=== PATIENT | female | born 1950 | race Hispanic/Latino ===

== ENCOUNTER → 2018-12-02 | Day surgery (SDC) | payer MEDICARE ==
[~2018-12-02] MED LIST: ALENDRONATE SOD70 MG; AMLODIPINE BESYL5 MG PO; B12; CALCIUM; FENTANYL CITRATE/PF 100MCG/2 ML INJ ONE; GLIMEPIRIDE2 MG PO; HYDROCHLOROTHIA25 MG; LORATADINE10 MG PO; LOSARTAN POTASS25 MG; LOVASTATIN40 MG; MELOXICAM7.5 MG PO; METOPROLOL TART50 MG PO; MIDAZOLAM HCL 2 MG/2 ML VIAL ONE; MONTELUKAST SOD10 MG PO; OMEPRAZOLE40 MG; OR PHACO EYE KIT ONE; PREOP PHACO EYE KIT ONE
--- OUTSIDE RECORDS SUMMARY | 2018-12-02 10:47 | XMS REPORT ---
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 Allergies, Adverse Reactions, Alerts This patient has no known allergies or adverse reactions. Medications This patient has no known medications. Results Test Description Test Time Test Comments Text Results Atomic Results Result Comments CT CHEST WO 2018-07-08 15:36:00 [place] [address] Patient Name: CATRACHO SALAS MR #: [id number] : 1950 Age/Sex: 68/F Req #: [id number] [facility] Physician: Ordered by: LEO FLOYD MD Report #: [id number] Location: CT Room/Bed: Procedure: [id number] CT/CT CHEST WO Exam Date: 07/08/18 Exam Time: 1115 REPORT STATUS: Signed EXAMINATION: CT scan of the chest without contrast. TECHNIQUE: Spiral CT images of the chest were performed from the lung apices to the level of the adrenal glands. No intravenous contrast was administered per physician's request. Coronal and sagittal reformatted images were obtained. COMPARISON: None. CLINICAL HISTORY:Persistent asthma DISCUSSION: ABSENCE OF INTRAVENOUS CONTRAST DECREASES SENSITIVITY FOR DETECTION OF FOCAL LESIONS AND VASCULAR PATHOLOGY. Exam limited as it was acquired during expiratory phase/patient unable to breath-hold. LINES/TUBES: None. LUNGS AND AIRWAYS: Increased attenuation of the lung parenchyma secondary to scan obtained during expiratory phase. No consolidation, pulmonary nodules or masses. Mild atelectatic changes in the lower lobes, predominantly the dependent portions. The airways are clear, without endobronchial lesions. PLEURA: No pneumothorax or pleural effusions. HEART AND MEDIASTINUM: The thyroid gland is normal. Mild to moderate cardiomegaly no pericardial effusion. Aorta is nonaneurysmal. Main pulmonary artery measures 2.7 cm. Atherosclerotic calcification of the coronary arteries and thoracic aortic arch. Small to moderate hiatal hernia LYMPH NODES: There is no mediastinal, hilar or axillary lymphadenopathy. ABDOMEN: Limited nonenhanced views of the upper abdomen show no abnormality within the visualized spleen or adrenal glands. Diffuse hepatic steatosis. BONES AND SOFT TISSUES: No aggressive lytic lesions. Multilevel degenerative disc changes in the thoracic spine. Soft tissues are unremarkable. IMPRESSION: 1. Increased attenuation of the lung parenchyma secondary to scan obtained during expiratory phase. No consolidation, pulmonary nodules or masses. Atelectatic changes in the lower lobes, predominantly the dependent portions. 2. Mild to moderate cardiomegaly. 3. Diffuse hepatic steatosis. Signed by: Dr. Preeti Molina M.D. on 07/08/2018 3:40 PM Dictated By: PREETI MOLINA MD [id number] Transcribed By: DAVIN on 07/08/18 1540 COPY TO: LEO FLOYD MD
[2018-12-02 13:04] VITALS: BP 111/66
== END | disposition home or self-care (01) ==
LOC: OR 10:45
PROVIDERS: ATTEND Ophthalmology
DX: H25.12 Age-related nuclear cataract, left eye (principal); I10 Essential (primary) hypertension; J45.909 Unspecified asthma, uncomplicated; E11.9 Type 2 diabetes mellitus without complications; K21.9 Gastro-esophageal reflux disease without esophagitis; Z79.84 Long term (current) use of oral hypoglycemic drugs
CPT/HCPCS: 36415; 66984; 82948; J2250

== ENCOUNTER → 2018-12-16 | Day surgery (SDC) | payer MEDICARE ==
[~2018-12-16] MED LIST changes: -FENTANYL CITRATE/PF 100MCG/2 ML INJ ONE
[2018-12-16 14:05] VITALS: BP 118/82
== END | disposition home or self-care (01) ==
LOC: OR 10:38
PROVIDERS: ATTEND Ophthalmology
DX: H25.11 Age-related nuclear cataract, right eye (principal); E11.9 Type 2 diabetes mellitus without complications; K21.9 Gastro-esophageal reflux disease without esophagitis; K44.9 Diaphragmatic hernia without obstruction or gangrene; J45.909 Unspecified asthma, uncomplicated; I10 Essential (primary) hypertension; I83.90 Asymptomatic varicose veins of unspecified lower extremity; Z79.84 Long term (current) use of oral hypoglycemic drugs
CPT/HCPCS: 36415; 66984; 82948; J2250; V2787

== ENCOUNTER → 2020-11-17 | Day surgery (SDC) | payer MEDICARE ==
[2020-11-14 09:46] LABS: BASOPHILS % 0.4 % (0.0-1.0); EOSINOPHILS # (AUTO) 0.2 (0.0-0.4); EOSINOPHILS % 3.1 % (0.0-6.0); HEMATOCRIT 37.7 % (34.2-44.1); HEMOGLOBIN 12.6 g/dL (12.0-16.0); LYMPHOCYTES # (AUTO) 2.9 (1.0-3.2); LYMPHOCYTES % 40.1 % (18.0-39.1); MEAN CORPUSCULAR HEMOGLOBIN 30.3 pg (28-32); MEAN CORPUSCULAR HGB CONC 33.4 g/dL (31-35); MEAN CORPUSCULAR VOLUME 90.6 fL (81-99); MONOCYTES # (AUTO) 0.3 (0.2-0.8); MONOCYTES % 4.7 % (4.4-11.3); NEUTROPHILS # (AUTO) 3.8 (2.1-6.9); NEUTROPHILS % 51.4 % (38.7-80.0); PLATELET COUNT 239 x10e3/uL (140-360); RED BLOOD COUNT 4.16 x10e6/uL (3.6-5.1); RED CELL DISTRIBUTION WIDTH 12.9 % (11.7-14.4)
[~2020-11-17] MED LIST changes: -ALENDRONATE SOD70 MG; +ALENDRONATE SOD70 MG PO; +CALCIUM 500 +1 EAC2 PO; +DIOVAN80 MG PO; +LIDOCAINE HCL 2% LOCAL INJ 5 ML SDV VIAL INJ ONE; -LOVASTATIN40 MG; +LOVASTATIN40 MG PO; -MIDAZOLAM HCL 2 MG/2 ML VIAL ONE; -OMEPRAZOLE40 MG; +OMEPRAZOLE40 MG PO; -OR PHACO EYE KIT ONE; -PREOP PHACO EYE KIT ONE; +PROPOFOL IV EMULSION 10 MG/ML 20 ML VIAL ONE; +VALSARTAN-HCTZ1 EACH PO; +VIT C PO
[2020-11-17 08:40] VITALS: BP 106/62
== END | disposition home or self-care (01) ==
LOC: OR 06:33
PROVIDERS: ATTEND Internal Medicine Gastroenterology
DX: K92.1 Melena (principal); D12.2 Benign neoplasm of ascending colon; K57.30 Diverticulosis of large intestine without perforation or abscess without bleeding; K64.8 Other hemorrhoids; K21.9 Gastro-esophageal reflux disease without esophagitis; Z71.3 Dietary counseling and surveillance; E66.9 Obesity, unspecified; I10 Essential (primary) hypertension; E11.9 Type 2 diabetes mellitus without complications; E78.5 Hyperlipidemia, unspecified; Z01.810 Encounter for preprocedural cardiovascular examination; Z01.812 Encounter for preprocedural laboratory examination; Z20.822 Contact with and (suspected) exposure to COVID-19; Z79.84 Long term (current) use of oral hypoglycemic drugs; Z68.35 Body mass index [BMI] 35.0-35.9, adult; Z86.16 Personal history of COVID-19
CPT/HCPCS: 36415 ×2; 45380; 82948; 85025; 93005; J2001; J2704; U0002; 45378; 45384